=== PATIENT | male | born 1975 | race Caucasian/White ===

== ENCOUNTER → 2022-09-01 14:07 | Outpatient (CLI) | payer OTHER, SELFPAY ==
--- NOTE | 2022-09-01 14:15 | DI.RAD.S_ITS ---
PROCEDURE: XR CHEST 2V INDICATIONS: HYPOXIA TECHNIQUE: 2 views of the chest were acquired. COMPARISON: None. FINDINGS: Surgical changes and devices: None. Lungs and pleura: Minimal linear bibasilar atelectasis versus scarring. No acute infiltrates. No pleural effusions or pneumothorax. Mediastinum: Mediastinal contours are normal. Heart size is normal. Bones and chest wall: No suspicious bony abnormalities. Soft tissues appear unremarkable. IMPRESSION: Minimal linear bibasilar atelectasis versus scarring. Dictated by: Erik Barton M.D. on 09/01/2022 at 16:18 Approved by: Erik Barton M.D. on 09/01/2022 at 16:19
--- NOTE | 2022-09-01 14:16 | DI.RAD.S_ITS ---
PROCEDURE: XR HAND LT 2V INDICATIONS: FRACTURE OF LT MIDDLE FINGER TECHNIQUE: 2 views of the hand(s) acquired. COMPARISON: None. FINDINGS: Bones: Chronic appearing tuft fracture of the 3rd distal phalanx. Soft tissues: No suspicious soft tissue calcifications. IMPRESSION: Chronic appearing tuft fracture of the 3rd distal phalanx. Dictated by: Luis Fernando Dalton M.D. on 09/01/2022 at 16:05 Approved by: Luis Fernando Dalton M.D. on 09/01/2022 at 16:05
--- NOTE | 2022-09-07 10:28 | PM.PFT.1 ---
Pulmonary Function Test Referral & Results Date Patient Seen: 09/01/22 Results: The spirometry demonstrates an FVC of 3.61 L which is 76% of predicted. The FEV1 was measured at 2.43 L which is 65% of predicted. The FEV1/FVC ratio was 67 which is 85% of predicted. Following the administration of bronchodilator there was a 39% improvement in FEF 25-75%. Interpretation: This study which was done as a forced spirometry study only, demonstrates evjm-re-lfacdrym obstructive lung disease based on reduction FEV1 although FEV1/FVC ratio is relatively preserved. There is evidence of benefit following bronchodilator administration particularly small airway flow as above
== END ==
PROVIDERS: Referring Provider Chiropractor; Visit Provider Chiropractor
DX: J96.01 Acute respiratory failure with hypoxia (principal); S62.633B Displaced fracture of distal phalanx of left middle finger, initial encounter for open fracture
CPT/HCPCS: 71046; 73120; 94060

== ENCOUNTER 2024-04-01 11:30 | Day surgery (SDC) | payer OTHER, SELFPAY ==
--- NOTE | 2024-04-01 | PATH_ITS ---
[facility] Accession Number: [id number] No. of containers..02 Tissue . 01 Material submitted: . PART A: colon - DESCENDING COLON POLYP PART B: rectum - RECTAL POLYP . 01 Diagnosis: A. DESCENDING COLON POLYP: Tubular adenoma. . B. RECTAL POLYP: Tubular adenoma. MRV 04/02/2024 1349 Local . 01 Electronically signed: . Luc Gamez MD, PhD, Pathologist NPI- [id number] . 01 Gross description: . Part A: DESCENDING COLON POLYP: Received in formalin are 3 fragment(s) of rowell, soft tissue measuring 0.2 x 0.1 x 0.1 cm to 0.4 x 0.2 x 0.2 cm submitted entirely in 1 cassette(s) Part B: RECTAL POLYP: Received in formalin are multiple fragment(s) of rowell, soft tissue measuring 0.2 x 0.2 x 0.1 cm to 0.8 x 0.4 x 0.3 cm submitted entirely in 1 cassette(s) /RADHA 04/02/2024 0128 Local . 01 Pathologist provided ICD-10: D12.4, D12.8 . 01 CPT . 617131, [id number] Specimen Comment: A courtesy copy of this report has been sent to [facility] Pathology Performed at: [address] [address], [place], [place] [id number] MD Js Godinez MD Phone: [phone]
[2024-04-01 11:57] VITALS: BP 122/76; PULSE 71; RESP 16; TEMP 36.2; O2SAT 99
--- NOTE | 2024-04-01 12:14 | P.HP_ITS ---
History of Present Illness History of Present Illness Date Patient Seen: 04/01/24 Time Patient Seen: 12:14 Chief complaint: Colonoscopy Narrative: 48-year-old white male with personal history of diverticulitis. Had a previous colonoscopy without any polyps. [facility] Medical History (Updated 04/01/24 @ 12:16 by Rob Graham MD) Colon cancer screening (~04/01/24) Social History Smoking Status: Current every day smoker alcohol intake: never Meds Home Medications and Allergies Home Medications Medication Instructions Recorded Confirmed Type sodium,potassium,mag sulfates 17.5 See Rx Instructions PO .COMPLEX 03/21/24 Rx gram-3.13 gram-1.6 gram oral soln #354 mL (Suprep Bowel Prep Kit) Allergies Allergy/AdvReac Type Severity Reaction Status Date / Time No Known Drug Allergies Allergy Verified 04/01/24 12:04 Review of Systems Review of Systems ROS: Yes All systems reviewed with the patient and are negative except as otherwise documented Exam Vital Signs (past 8 hours): - 04/01/24 11:57 Temperature 97.2 F L Pulse Rate 71 Respiratory Rate 16 Blood Pressure 122/76 Pulse Oximetry 99 Oxygen Delivery Method Room Air Oxygen Delivery Method Room Air Assessment & Plan Assessment and plan (1) Colon cancer screening: Status: Acute Assessment & Plan narrative: Patient presents for colonoscopy Risks, benefits, alternatives to colonoscopy explained, including but not limited to bowel perforation or other serious complication requiring surgery at less than 1 in 5000 colonoscopies, abdominal pain, cramping or bleeding and less than 1% of colonoscopies, and the chances that we find a diagnosis that would require further intervention of about 2%. Patient agrees to proceed. Time-Based Coding :: [TOTAL MINUTES] spent with patient and on the chart (including review of chart, obtaining history, exam, reviewing outside data, placing orders, documenting exam and treatment plan, and counseling patient) on [DATE].
[2024-04-01] MEDS: SODIUM CHLORIDE 0.9% 1,000 ML 1000 ML IV (12:19)
--- NOTE | 2024-04-01 12:43 | PM.OP.COLON ---
Operative Date/Time/Diagnoses Date of procedure: 04/01/24 Time of procedure: 12:44 Pre-op diagnosis: Colon screening Post-op diagnosis: other (Descending colon polyp, rectal polyp) Procedure & Clinicians Study performed: Colonoscopy with cold snare polypectomy of descending colon polyp and rectal polyp Same procedure as scheduled: Yes Indications: Colon screening Surgeon: Rob Graham Procedure Notes SCOAP/Timeout: Performed Procedure in detail: Time-out was performed. Mac was induced. Patient was placed in left lateral decubitus position. The perineum was inspected without any gross abnormality. Lubricated pediatric colonoscope was inserted and advanced to the cecum. The terminal ileum was intubated. The colonoscope was withdrawn slowly inspecting the circumference of the colon. Cold snare polypectomy was performed on a less than 1 cm polyp of the descending colon and less than 1 cm polyp of the rectum. Both were completely removed and retrieved. His sigmoid anastomosis appeared widely patent and viable. Very small polyps may have been missed, prep quality was adequate. Retroflexed view of the rectum showed small, non prolapsed nonbleeding internal hemorrhoids. The scope was withdrawn the patient was taken to PACU in good condition. Scope withdrawal time: 8 Sedation minutes: 12 Findings: polyp(s) Specimen(s): other (1. Descending colon polyp2. Rectal polyp) Complications: none Post-procedure Recommendations: Colonoscopy in 5 years Follow up: as needed Disposition: PACU
[2024-04-01 12:46] VITALS: BP 93/61; PULSE 103; RESP 18; TEMP 36.6; O2SAT 93
[2024-04-01 12:56] VITALS: BP 98/65; PULSE 84; RESP 17; O2SAT 94
[2024-04-01 12:58] VITALS: BP 98/65; PULSE 82; RESP 17; O2SAT 97
[2024-04-01 13:05] VITALS: BP 106/69; PULSE 71; RESP 20; O2SAT 96
== END 2024-04-01 13:30 | disposition home or self-care (01) ==
PROVIDERS: Referring Provider Surgery; Visit Provider Surgery
PROC: 0DJD8ZZ Inspection of Lower Intestinal Tract, Via Natural or Artificial Opening Endoscopic (ICD-10-PCS; CPT 45378; principal; 2024-04-01 12:45)
DX: Z12.11 Encounter for screening for malignant neoplasm of colon (principal); D12.8 Benign neoplasm of rectum; D12.4 Benign neoplasm of descending colon; K64.8 Other hemorrhoids; F17.210 Nicotine dependence, cigarettes, uncomplicated; Z98.0 Intestinal bypass and anastomosis status
CPT/HCPCS: 45385; J2405; J2704